=== PATIENT | male | born 1955 | race Caucasian/White ===

== ENCOUNTER 2020-03-27 09:00 | Inpatient (IN) ==
[2020-03-27 10:27] LABS: Basophils # 0.1 K/mcL (0.0-0.2); Basophils % 0.8 %; Eosinophils # 0.1 K/mcL (0.0-0.6); Eosinophils % 0.7 %; Hematocrit 32.4 % (37.5-50.1); Hemoglobin 10.2 g/dL (12.9-16.9); Immature Granulocytes % 0.4 % (0-4); Lymphocytes # 1.4 K/mcL (0.6-4.6); Lymphocytes % 18.6 %; Mean Corpuscular HGB Conc 31.5 g/dL (31.6-35.5); Mean Corpuscular Hemoglobin 27.3 pg (28.0-33.3); Mean Corpuscular Volume 86.6 fL (83.0-100.0); Mean Platelet Volume 8.6 fL (9.4-12.4); Monocytes # 0.4 K/mcL (0.0-1.3); Monocytes % 5.6 %; Neutrophils # 5.5 K/mcL (1.6-8.9); Platelet Count 314 K/mcL (140-400); Red Blood Count 3.74 M/mcL (4.19-5.50); Red Cell Distribution Width 15.9 % (11.5-14.5); Segmented Neutrophils % 73.9 %; White Blood Count 7.5 K/mcL (4.3-11.1)
[2020-03-27 10:41] LABS: INR 3.4; Prothrombin Time 38.8 Seconds (9.4-12.1)
[2020-03-27 10:43] LABS: Activated Partial Thrombo Time 49.2 Seconds (26.0-36.0)
[2020-03-27] MEDS ORDERED: Furosemide 40 MG/4 ML VIAL IVP ONE (10:53)
[2020-03-27 10:54] LABS: Albumin 3.7 g/dL (3.5-5.7); Albumin/Globulin Ratio 1.3 (1.1-2.2); Bilirubin,Direct 0.4 mg/dL (0.0-0.2); Bilirubin,Indirect 0.4 mg/dL (0.0-1.0); Bilirubin,Total 0.8 mg/dL (0.3-1.0); Calcium 9.1 mg/dL (8.6-10.3); Globulin 2.8 g/dL (2.4-3.5); Potassium 3.1 mEq/L (3.5-5.1); Total Protein 6.5 g/dL (6.4-8.9); Troponin I 0.04 ng/mL (< 0.04)
[2020-03-27] MEDS ORDERED: Aspirin 81 MG TAB.CHEW PO ONE (11:26)
[2020-03-27] MEDS ORDERED: Lidocaine Jelly 11 ml Syringe MM ONE (11:40)
[2020-03-27] MEDS ORDERED: Ipratropium/Albuterol Neb 3 ML IH ONE (11:53)
[2020-03-27] MEDS ORDERED: Ondansetron 4 MG/2 ML VIAL IVP ONE (12:11)
[2020-03-27 12:32] LABS: Bacteria,Urine Few per hpf (None-Few); Bilirubin,Urine Negative (Negative); Blood,Urine Negative (Negative); Clarity,Urine Clear (Clear); Color,Urine Light-Yellow (Yellow); Glucose,Urine (UA) Normal (Normal); Ketones,Urine Negative (Negative); Leukocyte Esterase,Urine Moderate (Negative); Mucus,Urine Few per lpf (None-Few); Nitrite,Urine Negative (Negative); Protein,Urine 100 mg/dL (Neg-Trace); Specific Gravity,Urine 1.008 (1.010-1.025); Squamous Epithelial Cell,Urine Few per hpf (None-Few); Urobilinogen,Urine Normal (Normal); WBC,Urine 15-30 per hpf (0-3)
[2020-03-27] MEDS ORDERED: Ondansetron 4 MG/2 ML VIAL IVP PRN (13:31)
[2020-03-27] MEDS ORDERED: Naloxone 0.4 MG/ML INJ IVP PRN (13:31)
[2020-03-27] MEDS ORDERED: *HR* Dextrose 50 % in Water (Vial) 50 ML VIAL IVP PRN (13:34)
[2020-03-27] MEDS ORDERED: D5% in Water 1,000 ML IVC PRN (13:34)
[2020-03-27] MEDS ORDERED: Dextrose Gel 15 GM/37.5 ML TUBE PO PRN ×2 (13:34)
[2020-03-27] MEDS: Nicotine 21 MG PATCH.TD24 TD SCH (14:58)
[2020-03-27] MEDS: Potassium Chloride Elixir 20 MEQ/15 ML UDC PO SCH ×2 (14:58→20:42)
[2020-03-27] MEDS: Insulin LISPRO 300 UNITS/3 ML VIAL SQ SCH (15:33)
[2020-03-27] MEDS ORDERED: Warfarin perPT PO PRN (18:00)
[2020-03-27] MEDS: Furosemide 40 MG/4 ML VIAL IVP SCH (20:42)
[2020-03-28 03:16] LABS: Basophils % 0.7 %; Eosinophils % 0.7 %; Hematocrit 27.2 % (37.5-50.1); Hemoglobin 8.7 g/dL (12.9-16.9); Immature Granulocytes % 0.3 % (0-4); Lymphocytes # 1.3 K/mcL (0.6-4.6); Lymphocytes % 21.5 %; Mean Corpuscular Hemoglobin 27.3 pg (28.0-33.3); Mean Corpuscular Volume 85.3 fL (83.0-100.0); Mean Platelet Volume 8.7 fL (9.4-12.4); Monocytes # 0.4 K/mcL (0.0-1.3); Monocytes % 6.1 %; Neutrophils # 4.3 K/mcL (1.6-8.9); Platelet Count 245 K/mcL (140-400); Red Blood Count 3.19 M/mcL (4.19-5.50); Red Cell Distribution Width 15.8 % (11.5-14.5); Segmented Neutrophils % 70.7 %; White Blood Count 6.1 K/mcL (4.3-11.1)
[2020-03-28 03:36] LABS: Calcium 8.7 mg/dL (8.6-10.3); Magnesium 1.6 mg/dL (1.6-2.6); Potassium 3.5 mEq/L (3.5-5.1)
[2020-03-28 03:38] LABS: INR 4.3
[2020-03-28 03:40] LABS: Prothrombin Time 49.2 Seconds (9.4-12.1)
[2020-03-28] MEDS: Insulin LISPRO 300 UNITS/3 ML VIAL SQ SCH ×3 (07:56→17:30)
[2020-03-28] MEDS: Nicotine 21 MG PATCH.TD24 TD SCH (08:15)
[2020-03-28] MEDS: Furosemide 40 MG/4 ML VIAL IVP SCH ×2 (08:15→20:03)
[2020-03-28] MEDS ORDERED: polyethylene glycoL 3350 17 GM POWD.PACK PO PRN (08:40)
[2020-03-28] MEDS: amLODIPine 5 MG TABLET PO SCH (09:18)
[2020-03-28] MEDS: Finasteride 5 MG TABLET PO SCH (09:19)
[2020-03-28] MEDS: DilTIAZem CD (24hr) 120 MG CAP.ER.24H PO SCH ×2 (09:33→20:04)
[2020-03-28 10:29] LABS: Hemoglobin 9.4 g/dL (12.9-16.9)
[2020-03-28 15:15] LABS: Hematocrit 30.5 % (37.5-50.1); Hemoglobin 9.7 g/dL (12.9-16.9)
[2020-03-28] MEDS: Magnesium Oxide 400 MG TABLET PO SCH ×2 (16:03→20:04)
[2020-03-28] MEDS: Ipratropium/Albuterol Neb 3 ML IH PRN ×2 (19:58→23:58)
[2020-03-28] MEDS ORDERED: hydrALAZINE 25 MG TABLET PO SCH (20:00)
[2020-03-29 00:50] LABS: Basophils # 0.1 K/mcL (0.0-0.2); Basophils % 0.9 %; Eosinophils # 0.1 K/mcL (0.0-0.6); Eosinophils % 0.8 %; Hemoglobin 9.6 g/dL (12.9-16.9); Immature Granulocytes % 0.4 % (0-4); Lymphocytes % 24.1 %; Mean Corpuscular Hemoglobin 27.3 pg (28.0-33.3); Mean Corpuscular Volume 85.2 fL (83.0-100.0); Mean Platelet Volume 8.6 fL (9.4-12.4); Monocytes # 0.5 K/mcL (0.0-1.3); Monocytes % 5.9 %; Neutrophils # 5.8 K/mcL (1.6-8.9); Platelet Count 268 K/mcL (140-400); Red Blood Count 3.52 M/mcL (4.19-5.50); Red Cell Distribution Width 15.7 % (11.5-14.5); Segmented Neutrophils % 67.9 %; White Blood Count 8.5 K/mcL (4.3-11.1)
[2020-03-29 00:52] LABS: INR 3.3; Prothrombin Time 37.5 Seconds (9.4-12.1)
[2020-03-29 01:08] LABS: Potassium 3.6 mEq/L (3.5-5.1)
[2020-03-29] MEDS: Insulin LISPRO 300 UNITS/3 ML VIAL SQ SCH ×3 (08:09→16:19)
[2020-03-29] MEDS: DilTIAZem CD (24hr) 120 MG CAP.ER.24H PO SCH ×2 (08:40→20:07)
[2020-03-29] MEDS: Furosemide 40 MG/4 ML VIAL IVP SCH (08:40)
[2020-03-29] MEDS: amLODIPine 5 MG TABLET PO SCH (08:40)
[2020-03-29] MEDS: Finasteride 5 MG TABLET PO SCH (08:40)
[2020-03-29] MEDS: Magnesium Oxide 400 MG TABLET PO SCH ×2 (08:40→20:08)
[2020-03-29] MEDS: hydrALAZINE 25 MG TABLET PO SCH ×3 (08:40→20:07)
[2020-03-29] MEDS: Nicotine 21 MG PATCH.TD24 TD SCH (08:40)
[2020-03-29] MEDS ORDERED: *HR* Warfarin 2.5 MG TABLET PO ONE (18:00)
[2020-03-29] MEDS: Ipratropium/Albuterol Neb 3 ML IH PRN (20:04)
[2020-03-30 00:52] LABS: Basophils # 0.1 K/mcL (0.0-0.2); Basophils % 0.8 %; Eosinophils % 0.5 %; Hematocrit 29.5 % (37.5-50.1); Hemoglobin 9.3 g/dL (12.9-16.9); Immature Granulocytes % 0.3 % (0-4); Lymphocytes # 1.4 K/mcL (0.6-4.6); Lymphocytes % 21.8 %; Mean Corpuscular HGB Conc 31.5 g/dL (31.6-35.5); Mean Corpuscular Hemoglobin 26.7 pg (28.0-33.3); Mean Corpuscular Volume 84.8 fL (83.0-100.0); Mean Platelet Volume 8.3 fL (9.4-12.4); Monocytes # 0.4 K/mcL (0.0-1.3); Monocytes % 5.9 %; Neutrophils # 4.7 K/mcL (1.6-8.9); Platelet Count 252 K/mcL (140-400); Red Blood Count 3.48 M/mcL (4.19-5.50); Red Cell Distribution Width 15.6 % (11.5-14.5); Segmented Neutrophils % 70.7 %; White Blood Count 6.6 K/mcL (4.3-11.1)
[2020-03-30 01:04] LABS: INR 2.8; Prothrombin Time 31.6 Seconds (9.4-12.1)
[2020-03-30 01:10] LABS: Calcium 9.2 mg/dL (8.6-10.3); Potassium 3.7 mEq/L (3.5-5.1)
[2020-03-30] MEDS: Insulin LISPRO 300 UNITS/3 ML VIAL SQ SCH ×3 (07:38→16:55)
[2020-03-30] MEDS ORDERED: Furosemide 40 MG/4 ML VIAL IVP SCH (09:00)
[2020-03-30] MEDS: Finasteride 5 MG TABLET PO SCH (09:21)
[2020-03-30] MEDS: hydrALAZINE 25 MG TABLET PO SCH ×3 (09:21→20:07)
[2020-03-30] MEDS: Magnesium Oxide 400 MG TABLET PO SCH ×2 (09:21→20:07)
[2020-03-30] MEDS: amLODIPine 5 MG TABLET PO SCH (09:22)
[2020-03-30] MEDS: DilTIAZem CD (24hr) 120 MG CAP.ER.24H PO SCH ×2 (09:22→20:07)
[2020-03-30] MEDS: Nicotine 21 MG PATCH.TD24 TD SCH (09:23)
[2020-03-30] MEDS: Isosorbide MONOnitrate (24 HR) 60 MG TAB.ER.24H PO SCH (12:01)
[2020-03-30] MEDS ORDERED: *HR* Warfarin 5 MG TABLET PO ONE (18:00)
[2020-03-30] MEDS: Ipratropium/Albuterol Neb 3 ML IH PRN (20:32)
[2020-03-31] MEDS: Ipratropium/Albuterol Neb 3 ML IH PRN (04:46)
[2020-03-31] MEDS: Insulin LISPRO 300 UNITS/3 ML VIAL SQ SCH ×2 (07:39→11:04)
[2020-03-31] MEDS: Nicotine 21 MG PATCH.TD24 TD SCH (08:06)
[2020-03-31] MEDS: Finasteride 5 MG TABLET PO SCH (08:06)
[2020-03-31] MEDS: amLODIPine 5 MG TABLET PO SCH (08:06)
[2020-03-31] MEDS: Magnesium Oxide 400 MG TABLET PO SCH (08:06)
[2020-03-31] MEDS: Isosorbide MONOnitrate (24 HR) 60 MG TAB.ER.24H PO SCH (08:06)
[2020-03-31] MEDS: DilTIAZem CD (24hr) 120 MG CAP.ER.24H PO SCH (08:06)
[2020-03-31] MEDS: hydrALAZINE 25 MG TABLET PO SCH (08:06)
[2020-03-31] MEDS ORDERED: Bumetanide 1 MG TABLET PO SCH (09:00)
[2020-03-31 10:04] VITALS: BP 146/56
== END 2020-03-31 12:39 | disposition home or self-care (01) | DRG 280 ==
LOC: EMEROOARM 09:00 → 2NNU 09:00 → SUATTDRO 13:10 → 2NNU 14:37 → SUATTDRO 03-28 17:25 → 2ANU 03-30 15:40
PROVIDERS: ADMIT Internal Medicine; ATTEND Pharmacist